=== PATIENT | female | born 1995 | race Caucasian/White ===

== ENCOUNTER 2016-08-23 20:18 | Emergency (ER) | payer SELFPAY ==
[~2016-08-23] VITALS: Ht 160 cm; Wt 60.9 kg
[2016-08-23 20:32] VITALS: BP 113/66
[2016-08-23] MEDS ORDERED: DIAZEPAM 5 MG TABLET PO ONE (21:00)
[2016-08-23] MEDS ORDERED: HYDROcodone/APAP 5/325 TABLET PO ONE (21:00)
[2016-08-23] MEDS ORDERED: KETOROLAC 30 MG/1 ML IM ONE (21:00)
[2016-08-23] MEDS ORDERED: HYDROcodone/APAP 5/325 TABLET ONE (21:15)
[2016-08-23] MEDS ORDERED: KETOROLAC 30 MG/1 ML ONE (21:16)
[2016-08-23] MEDS ORDERED: DIAZEPAM 5 MG TABLET ONE (21:16)
== END 2016-08-23 21:52 | disposition home or self-care (01) ==
LOC: ED 21:46
DX: S16.1XXA Strain of muscle, fascia and tendon at neck level, initial encounter (principal); V49.9XXA Car occupant (driver) (passenger) injured in unspecified traffic accident, initial encounter; Y93.89 Activity, other specified; Y92.89 Other specified places as the place of occurrence of the external cause; Y99.8 Other external cause status
CPT/HCPCS: 96372; 99283; J1885